=== PATIENT | female | born 1990 | race Caucasian/White ===

== ENCOUNTER 2017-09-20 03:24 | Emergency (ER) | payer BC, SELFPAY | END 2017-09-20 05:51 | disposition home or self-care (01) | PROVIDERS: Emergency Provider Emergency Medicine; Family Provider Family Medicine; Visit Provider Emergency Medicine | DX: R07.2 Precordial pain (principal); Z88.2 Allergy status to sulfonamides; Z88.6 Allergy status to analgesic agent | CPT/HCPCS: 36415; 71020; 80053; 81001; 81025; 82550; 82553; 84484; 85025; 85378; 96374; 96375; 99284 ==

== ENCOUNTER 2019-02-12 08:05 | Observation (INO) | payer BC, SELFPAY ==
[2019-02-12] VITALS (11 sets, daily range): BP systolic 100–136; BP diastolic 57–94; PULSE 67–113; RESP 16–98; TEMP 36.6–37.2; O2SAT 94–100; BMI 32.6; BMI 34.0
--- NOTE | 2019-02-12 08:20 | HMH.EDGENADL ---
ED Disposition Clinical Impression: Rotaviral gastroenteritis Disposition: Home, Self-Care Condition on Discharge: Fair Instructions: DI for Diarrhea and Traveler's Diarrhea -- Adult, DI for Nausea -- Adult Prescriptions: Hydrocodone/Acetaminophen [[place] 7.5-325 Tablet] 1 tab PO TID PRN 3 Days #12 tab PRN Reason: Diarrhea Referrals: León Paulino [Primary Care Provider] - Time of Disposition: 11:44 - Critical Care Critical Care Time: No Attestation: On , the high probability of a clinically significant, sudden or life threatening deterioration of the following system(s) required my full and direct attention, intervention and personal management. The time I documented below is in addition to time spent performing reported procedures but includes the following listed in this critical care notation. Medical Decision Making - Medical Records Medical records reviewed: Yes: I reviewed the patient's medical records. - Job Inquiry Pt receiving controlled substance: No Job was queried for this patient: No Vital Signs: 02/12/19 08:15 02/12/19 08:59 02/12/19 10:24 Temperature 99 F Temperature Source Oral Pulse Rate [Left Radial] 113 H 76 75 Respiratory Rate 18 Blood Pressure [Right Arm] 135/94 H 127/77 116/73 Blood Pressure Mean [Right Arm] 107 93 87 Blood Pressure Source [Right Arm] Automatic Cuff Blood Pressure Position [Right Arm] Sitting 02 Sat by Pulse Oximetry 97 97 99 Oxygen Delivery Method Room Air 02/12/19 11:00 02/12/19 11:30 Temperature Temperature Source Pulse Rate [Left Radial] 95 H 89 Respiratory Rate Blood Pressure [Right Arm] 126/73 136/87 Blood Pressure Mean [Right Arm] 90 103 Blood Pressure Source [Right Arm] Blood Pressure Position [Right Arm] 02 Sat by Pulse Oximetry 98 96 Oxygen Delivery Method - Lab Data Lab results reviewed: Yes: I reviewed the patient's lab results. Lab Results 02/12/19 08:29: Urine Color Yellow, Urine Appearance Sl cloudy, Urine pH 7.0, Ur Specific [place] 1.015, Urine Protein 1+, Urine Glucose (UA) Negative, Urine Ketones Negative, Urine Blood 3+, Urine Nitrate Positive, Urine Bilirubin Negative, Urine Urobilinogen 1.0, Ur Leukocyte Esterase 1+ A, Urine RBC 3-5, Urine WBC Occasional, Ur Squamous Epith Cells 10-20, Urine Bacteria 1+, Urine Mucus Trace 02/12/19 08:29: Stl Aeromonas (PCR) Not detected, Stl C. cayetanensis PCR Not detected, Stool Rotavirus (PCR) Detected A, Stl Adenov F 40/41 PCR Not detected, Stool Astrovirus (PCR) Not detected, Stool Campylobacter PCR Not detected, Stl C.difficile Tox PCR Not detected, Stool Cryptosporidium PCR Not detected, Stl E.coli Shiga Tox PCR Not detected, Stool E coli O157 PCR Not detected, Stl Enterotoxigenic E PCR Not detected, Stool EPEC (PCR) Not detected, Stool EAEC (PCR) Not detected, Stl E. histolytica PCR Not detected, Stool Giardia Lamblia PCR Not detected, Stool Salmonella PCR Not detected, Stool Sapovirus (PCR) Not detected, Stl P. shigelloides PCR Not detected, Stl Shigella/EIEC PCR Not detected, St Y.enterocolitica PCR Not detected, Stool Vibrio (PCR) Not detected, Stl Vibrio cholerae PCR Not detected, Stl Norovirus GI/GII PCR Not detected 02/12/19 08:29: Urine HCG, Qual Negative 02/12/19 08:35: WBC 7.0, RBC 5.40, Hgb 15.6, Hct 44.4, MCV 82.3, MCH 28.9, MCHC 35.1, RDW 13.7, Plt Count 270, MPV 7.0 L, Neut % (Auto) 69.6, Lymph % (Auto) 19.9, [place] % (Auto) 7.7, Eos % (Auto) 2.6, Baso % (Auto) 0.2, Neut # (Auto) 4.9, Lymph # (Auto) 1.4, [place] # (Auto) 0.5, Eos # (Auto) 0.2, Baso # (Auto) 0.0 02/12/19 08:35: Sodium 138, Potassium 2.8 L*, Chloride 104, Carbon Dioxide 26, Anion Gap 10.8, BUN 7, Creatinine 0.65, Estimated Creat Clear 202, Estimated GFR 110, Est GFR ( Amer) 133, Glucose 95, Calcium 8.3 L, Total Bilirubin 0.4, AST 114 H, ALT 183 H, Alkaline Phosphatase 91, Total Protein 8.0, Albumin 3.6, Globulin 4.4 H, Albumin/Globulin Ratio 0.8 L Result diagrams: 02/12/19 08:35 02/12/19 0
--- NOTE | 2019-02-12 08:26 | ED_ITS ---
ED Disposition Clinical Impression: Rotaviral gastroenteritis Disposition: Home, Self-Care Condition on Discharge: Fair Instructions: DI for Diarrhea and Traveler's Diarrhea -- Adult, DI for Nausea -- Adult Prescriptions: Hydrocodone/Acetaminophen [[place] 7.5-325 Tablet] 1 tab PO TID PRN 3 Days #12 tab PRN Reason: Diarrhea Referrals: León Paulino [Primary Care Provider] - Time of Disposition: 11:44 - Critical Care Critical Care Time: No Attestation: On , the high probability of a clinically significant, sudden or life threatening deterioration of the following system(s) required my full and direct attention, intervention and personal management. The time I documented below is in addition to time spent performing reported procedures but includes the following listed in this critical care notation. Medical Decision Making - Medical Records Medical records reviewed: Yes: I reviewed the patient's medical records. - Job Inquiry Pt receiving controlled substance: No Job was queried for this patient: No Vital Signs: 02/12/19 08:15 02/12/19 08:59 02/12/19 10:24 Temperature 99 F Temperature Source Oral Pulse Rate [Left Radial] 113 H 76 75 Respiratory Rate 18 Blood Pressure [Right Arm] 135/94 H 127/77 116/73 Blood Pressure Mean [Right Arm] 107 93 87 Blood Pressure Source [Right Arm] Automatic Cuff Blood Pressure Position [Right Arm] Sitting 02 Sat by Pulse Oximetry 97 97 99 Oxygen Delivery Method Room Air 02/12/19 11:00 02/12/19 11:30 Temperature Temperature Source Pulse Rate [Left Radial] 95 H 89 Respiratory Rate Blood Pressure [Right Arm] 126/73 136/87 Blood Pressure Mean [Right Arm] 90 103 Blood Pressure Source [Right Arm] Blood Pressure Position [Right Arm] 02 Sat by Pulse Oximetry 98 96 Oxygen Delivery Method - Lab Data Lab results reviewed: Yes: I reviewed the patient's lab results. Lab Results 02/12/19 08:29: Urine Color Yellow, Urine Appearance Sl cloudy, Urine pH 7.0, Ur Specific [place] 1.015, Urine Protein 1+, Urine Glucose (UA) Negative, Urine Ketones Negative, Urine Blood 3+, Urine Nitrate Positive, Urine Bilirubin Negative, Urine Urobilinogen 1.0, Ur Leukocyte Esterase 1+ A, Urine RBC 3-5, Urine WBC Occasional, Ur Squamous Epith Cells 10-20, Urine Bacteria 1+, Urine Mucus Trace 02/12/19 08:29: Stl Aeromonas (PCR) Not detected, Stl C. cayetanensis PCR Not detected, Stool Rotavirus (PCR) Detected A, Stl Adenov F 40/41 PCR Not detected, Stool Astrovirus (PCR) Not detected, Stool Campylobacter PCR Not detected, Stl C.difficile Tox PCR Not detected, Stool Cryptosporidium PCR Not detected, Stl E.coli Shiga Tox PCR Not detected, Stool E coli O157 PCR Not detected, Stl Enterotoxigenic E PCR Not detected, Stool EPEC (PCR) Not detected, Stool EAEC (PCR) Not detected, Stl E. histolytica PCR Not detected, Stool Giardia Lamblia PCR Not detected, Stool Salmonella PCR Not detected, Stool Sapovirus (PCR) Not detected, Stl P. shigelloides PCR Not detected, Stl Shigella/EIEC PCR Not detected, St Y.enterocolitica PCR Not detected, Stool Vibrio (PCR) Not detected, Stl Vibrio cholerae PCR Not detected, Stl Norovirus GI/GII PCR Not detected 02/12/19 08:29: Urine HCG, Qual Negative 02/12/19 08:35: WBC 7.0, RBC 5.40, Hgb 15.6, Hct 44.4, MCV 82.3, MCH 28.9, MCHC 35.1, RDW 13.7, Plt Count 270, MPV 7.0
[2019-02-12 08:35] LABS: Adenovirus F 40/41, stool Not Detected (NotDetected); Astrovirus Not Detected (NotDetected); Campylobacter Not Detected (NotDetected); Clostridium Difficile A/B, PCR Not Detected (NotDetected); Cryptosporidium Not Detected (NotDetected); Cyclospora Cayetanesis Not Detected (NotDetected); Entamoeba histolytica Not Detected (NotDetected); Enteroaggregative E coli Not Detected (NotDetected); Enteropathogenic E coli Not Detected (NotDetected); Enterotoxigenic E coli Not Detected (NotDetected); Giardia lamblia Not Detected (NotDetected); Microscopic, Urine URINE MICROSCOPIC (MICROSCOPIC); Norovirus Not Detected (NotDetected); Plesimonas Shigalloides, PCR Not Detected (NotDetected); Salmonella, PCR Not Detected (NotDetected); Sapovirus Not Detected (NotDetected); Shiga-like toxin E coli Not Detected (NotDetected); Shigella Enterovasive E coli Not Detected (NotDetected); Vibrio Cholerae Not Detected (NotDetected); Vibrio, PCR Not Detected (NotDetected); Yersinia Entercolitica, PCR Not Detected (NotDetected)
[2019-02-12 08:41] LABS: Appearance,Urine SL CLOUDY (Clear); Blood, Urine 3+ (Negative); Color,Urine YELLOW (Yellow); Glucose,Urine (UA) Negative (Negative); Ketones,Urine Negative (Negative); Leukocyte Esterase,Urine 1+ (Negative); Nitrate,Urine POSITIVE (Negative); Protein,Urine 1+ (Negative); Specific Gravity, Urine 1.015 (1.005-1.030)
[2019-02-12 08:45] LABS: Urine Pregnancy, HCG Qual. Negative (Negative)
[2019-02-12 08:46] LABS: Bilirubin,Urine Negative (Negative)
[2019-02-12 08:47] LABS: Basophils % 0.2 % (0.1-2.0); Eosinophils # 0.2 K/mm3 (0.0-0.4); Eosinophils % 2.6 % (0.1-12.0); Hematocrit 44.4 % (37.0-47.0); Hemoglobin 15.6 g/dL (12.2-16.2); Lymphocytes # 1.4 K/mm3 (0.7-4.5); Lymphocytes % 19.9 % (10-50); Mean Corpuscular HGB Conc 35.1 g/dL (31.8-35.4); Mean Corpuscular Hemoglobin 28.9 pg (27.0-31.2); Mean Corpuscular Volume 82.3 fl (81-99); Monocytes # 0.5 K/mm3 (0.1-1.0); Monocytes % 7.7 % (1.7-9.3); Neutrophils # 4.9 K/mm3 (1.8-7.8); Neutrophils % 69.6 % (37.0-80.0); Platelet Count 270 K/mm3 (142-424); Red Cell Distribution Width 13.7 % (11.5-17.5)
[2019-02-12 08:47] LABS: Bacteria,Urine 1+ /lpf; Mucus,Urine Trace /lpf; WBC,Urine Occasional #/hpf (0-3)
[2019-02-12 09:02] LABS: Alanine Aminotransferase 183 U/L (12-78); Albumin Level 3.6 gm/dL (3.4-5.0); Albumin/Globulin Ratio 0.8 (1.1-1.8); Alkaline Phosphatase 91 U/L (46-116); Aspartate Amino Transferase 114 U/L (15-37); Bilirubin,Total 0.4 mg/dL (0.2-1.0); Blood Urea Nitrogen 7 mg/dL (7-18); Calcium 8.3 mg/dL (8.5-10.1); Creatinine Clearance Estimated 202 mL/min (50-200); Creatinine,Serum 0.65 mg/dL (0.55-1.02); Estimated Glomerular Filt Rate 110 ml/min (>60); GFR (African American) 133 ML/MIN (>60); Globulin 4.4 gm/dl (1.3-3.2); Glucose 95 mg/dL (74-106)
[2019-02-12 09:07] LABS: Sodium 138 mmol/L (136-145)
[2019-02-12 09:12] LABS: Anion Gap 10.8 mEq/L (5-15); Carbon Dioxide 26 mmol/L (21.0-32.0); Chloride 104 mmol/L (98-107)
[2019-02-12 09:13] LABS: Potassium 2.8 mmoL/L (3.5-5.1)
--- NOTE | 2019-02-12 09:15 | PC.NURSE ---
dr rebollar informed of k+ of 2.8
--- NOTE | 2019-02-12 09:59 | PC.NURSE ---
pt states no improvement
[2019-02-12 10:25] LABS: Rotavirus A Detected (NotDetected)
--- NOTE | 2019-02-12 12:07 | PC.NURSE ---
called care management and house for bed assignment and bed status
--- NOTE | 2019-02-12 12:54 | HMH.HP ---
*Admission Date: 02/12/19 <Anahi Harvey 02/12/19 13:01> *Chief complaint: diarrhea, abdominal cramping <Anahi Harvey 02/12/19 16:10> *History of present illness: Ms. Tavarez is a 28-year-old female who has had 2 children at home with a stomach virus. She states her 4-year-old started with symptoms on Saturday and was better by Saturday. Her 4-month-old baby just started with some green diarrhea. Over the past 3 days she has had one episode of vomiting and a lot of diarrhea. She is having approximately 20 episodes a day of watery diarrhea. She has had no foreign travel and denies any antibiotic use. She has been trying to drink Gatorade but has been unable to eat. She felt weak and dehydrated and presented to the emergency room where a diarrhea panel was positive for rotavirus. Her potassium was low as well. She will be admitted for rehydration and potassium supplementation. <Anahi Harvey 02/12/19 16:10> [facility] History I have reviewed the patient's past medical history: Yes <Anahi Harvey 02/12/19 13:01> Medical History: Reports:: Depression (post ) <Anahi Harvey 02/12/19 16:04> *Have you ever received a pneumonia vaccine?: No <Anahi Harvey 02/12/19 16:10> *Have you received a flu vaccine this season?: No <Anahi Harvey 02/12/19 13:01> Other Medical History: Reports: Hypothyroidism <Anahi Harvey 02/12/19 13:01> Laterality Cases: Bilateral: Tonsillectomy <Anahi Harvey 02/12/19 13:01> - *Social History Smoking Status: Never smoker <Anahi Harvey 02/12/19 13:01> Alcohol Intake: never <Anahi Harvey 02/12/19 13:01> *Occupational Status:: other <Anahi Harvey 02/12/19 13:01> *Travel in the last 8 weeks: None <Anahi Harvey 02/12/19 13:01> - Psychiatric History Expresses thoughts of harming self/others: None <Anahi Harvey 02/12/19 13:01> Suicide Plan Description: No Plan [facility]> [facility] Hx:: Hyperlipidemia, Hypertension [facility]:10> Review of Systems - Constitutional Reports chills, Reports fever(s), Reports weakness [facility] 02/12/19 13:01> - Eyes Denies blurry vision, Denies double vision <[facility]/12[facility] 13:01> - ENT Denies nasal congestion, Denies sore throat, Denies dizziness [facility] 02/12/19 13:01> - *Cardiovascular Denies chest pain, Denies shortness of breath, Denies rapid, pounding, or irregular heartbeat [facility] 02/12/19 13:01> - *Respiratory Denies cough, Denies shortness of breath [facility] 02/12/19 13:01> - *Gastrointestinal Reports abdominal pain, Reports loose stools, Reports nausea, Reports vomiting [facility] 02/12/19 13:01> - *Genitourinary Denies difficulty urinating, Denies painful urination <[facility] 02/12/19 13:01> - *Musculoskeletal Denies joint pain, Denies muscle weakness [facility] 02/12/19 13:01> - *Neurologic Reports dizziness, Reports weakness, Denies headache(s) <[facility]/12/[facility] 13:01> Meds Home Medications Medication Instructions Recorded Confirmed Type levothyroxine 100 mcg capsule 100 mcg PO DAILY cap 11/13/17 02/12/19 History Sertraline HCl [Zoloft 50mg tablet] 50 mg PO DAILY 02/12/19 02/12/19 History <Manny Wynne 02/12/19 17:45> Allergies Allergy/AdvReac Type Severity Reaction Status Date / Time codeine [CODEINE] Allergy Intermediate I-ITCHING Verified 02/12/19 08:42 Sulfa (Sulfonamide Allergy Intermediate I-ITCHING Verified 02/12/19 08:41 Antibiotics) [SULFA (SULFONAMIDE ANTIBIOTICS)] <Manny Wynne 02/12/19 17:45> Exam Vital signs and Labs for Last 24 Hours: Temp Pulse Resp BP Pulse Ox 98.0 F 67 17 109/63 L 100 02/12/19 16:00 02/12/19 16:00 02/12/19 16:00 02/12/19 16:00 02/12/19 16:00 Laboratory Results - last 24 hr 02/12/19 08:29: Urine Color Yellow, Urine Appearance Sl cloudy, Urine pH 7.0, Ur Specific [place] 1.015, Urin
--- NOTE | 2019-02-12 12:55 | PC.NURSE ---
report to august ndiaye
--- NOTE | 2019-02-12 12:57 | P.HP_ITS ---
*Admission Date: 02/12/19 <Anahi Harvey 02/12/19 13:01> *Chief complaint: diarrhea, abdominal cramping <Anahi Harvey 02/12/19 16:10> *History of present illness: Ms. Tavarez is a 28-year-old female who has had 2 children at home with a stomach virus. She states her 4-year-old started with symptoms on Saturday and was better by Saturday. Her 4-month-old baby just started with some green diarrhea. Over the past 3 days she has had one episode of vomiting and a lot of diarrhea. She is having approximately 20 episodes a day of watery diarrhea. She has had no foreign travel and denies any antibiotic use. She has been trying to drink Gatorade but has been unable to eat. She felt weak and dehydrated and presented to the emergency room where a diarrhea panel was positive for rotavirus. Her potassium was low as well. She will be admitted for rehydration and potassium supplementation. <Anahi Harvey 02/12/19 16:10> [facility] History I have reviewed the patient's past medical history: Yes <Anahi Harvey 02/12/19 13:01> Medical History: Reports:: Depression (post ) <Anahi Harvey 02/12/19 16:04> *Have you ever received a pneumonia vaccine?: No <Anahi Harvey 02/12/19 16:10> *Have you received a flu vaccine this season?: No <Anahi Harvey 02/12/19 13 :01> Other Medical History: Reports: Hypothyroidism <Anahi Harvey 02/12/19 13:01> Laterality Cases: Bilateral: Tonsillectomy <Anahi Harvey 02/12/19 13:01> - *Social History Smoking Status: Never smoker <Anahi Harvey 02/12/19 13:01> Alcohol Intake: never <Anahi Harvey 02/12/19 13:01> *Occupational Status:: other <Anahi Harvey 02/12/19 13:01> *Travel in the last 8 weeks: None <Anahi Harvey 02/12/19 13:01> - Psychiatric History Expresses thoughts of harming self/others: None <Anahi Harvey 02/12/19 13:01> Suicide Plan Description: No Plan [facility]> Family Hx:: Hyperlipidemia, Hypertension [facility] 16:10> Review of Systems - Constitutional Reports chills, Reports fever(s), Reports weakness [facility]/12[facility] 13:01> - Eyes Denies blurry vision, Denies double vision <[facility] 02/12[facility] 13:01> - ENT Denies nasal congestion, Denies sore throat, Denies dizziness <[facility] 02/12/[facility] 13:01> - *Cardiovascular Denies chest pain, Denies shortness of breath, Denies rapid, pounding, or irregular heartbeat <[facility] 02/12/[facility] 13:01> - *Respiratory Denies cough, Denies shortness of breath <[facility] 02/12/19 13:01> - *Gastrointestinal Reports abdominal pain, Reports loose stools, Reports nausea, Reports vomiting <[facility] 02/12/19 13:01> - *Genitourinary Denies difficulty urinating, Denies painful urination <[facility] 02/12/19 13:01> - *Musculoskeletal Denies joint pain, Denies muscle weakness [facility]/12[facility] 13:01> - *Neurologic Reports dizziness, Reports weakness, Denies headache(s) <[facility] 02/12/19 13:01> Meds Home Medications Medication Instructions Recorded Confirmed Type levothyroxine 100 mcg capsule 100 mcg PO DAILY cap 11/13/17 02/12/19 History Sertraline HCl [Zoloft 50mg tablet] 50 mg PO DAILY 02/12/19 02/12/19 History <Manny Wynne - 02/12/19 17:45> Allergies Allergy/AdvReac Type Severity Reaction Status Date / Time codeine [CODEINE] Allergy Intermediate I-ITCHING Verified 02/12/19 08:42 Sulfa (Sulfonamide Allergy Intermediat
--- NOTE | 2019-02-12 14:27 | P.CONPHA_ITS ---
[facility] Pharmacy VTE Monitoring - Patient Demographics Admission date: 02/12/19 Report Date: 02/12/19 Time: 14:27 Allergies/Adverse Reactions: Patient Allergies codeine [CODEINE] Allergy (Intermediate, Verified 02/12/19 08:42) I-ITCHING Sulfa (Sulfonamide Antibiotics) [SULFA (SULFONAMIDE ANTIBIOTICS)] Allergy (Intermediate, Verified 02/12/19 08:41) I-ITCHING Height: 1.73 m Weight: 101.633 kg Patient Problems: Current Active Problems (Updated 02/12/19 @ 13:01 by CHANDLER Jensen) Rotaviral gastroenteritis (Acute) Hypokalemia (Acute) Hypothyroidism (acquired) (Chronic) - VTE Risk Labs: VTE Related Lab Results Hgb 15.6 g/dL (12.2-16.2) 02/12/19 08:35 Hct 44.4 % (37.0-47.0) 02/12/19 08:35 Plt Count 270 K/mm3 (142-424) 02/12/19 08:35 BUN 7 mg/dL (7-18) 02/12/19 08:35 Creatinine 0.65 mg/dL (0.55-1.02) 02/12/19 08:35 Estimated Creat Clear 202 mL/min (50-200) 02/12/19 08:35 Was VTE Risk Assessment Performed: Yes VTE Score: 0 VTE Risk Level: Very Low Risk - Prophylaxis VTE Prophylaxis Ordered?: Yes Types of VTE Prophylaxis: TEDS Knee High Location of Applied Device: Bilateral Lower Extremeties - VTE Diagnosis Confirmed Treatment or plan recommended: Continue Current Treatment
--- NOTE | 2019-02-12 14:39 | PC.NURSE ---
RN contacted MD regarding patients home medication for Zoloft 50mg daily. MD stated that it can make her loose stools worse and educate the patient of this side effect and leave it up to her if she wants it or not. RN educated the patient and she stated that if she goes home tomorrow she will just take it when she gets home, if not we will worry about it then. will continue to monitor.
[2019-02-12 15:25] LABS: Anion Gap 15.2 mEq/L (5-15); Blood Urea Nitrogen 5 mg/dL (7-18); Carbon Dioxide 22 mmol/L (21.0-32.0); Chloride 107 mmol/L (98-107); Creatinine Clearance Estimated 311 mL/min (50-200); Creatinine,Serum 0.44 mg/dL (0.55-1.02); Estimated Glomerular Filt Rate 173 ml/min (>60); GFR (African American) 209 ML/MIN (>60); Glucose 87 mg/dL (74-106); Sodium 141 mmol/L (136-145)
[2019-02-12 15:26] LABS: Potassium 3.2 mmoL/L (3.5-5.1)
[2019-02-12 15:32] LABS: Calcium 7.5 mg/dL (8.5-10.1)
[2019-02-13 03:46] VITALS: BP 98/53; PULSE 66; RESP 18; TEMP 36.5; O2SAT 98; BMI 34.0
--- NOTE | 2019-02-13 03:47 | PC.NURSE ---
Pt is A&Ox4 and has ambulated to the several times this shift, independently, and pt tolerates well. Pt has denied any pain but has c/o of some nausea and ABD cramping, relieved with 1x dose of zofran. Pt has continued to have several episodes of watery diarrhea. Pt slept intermittently through the night d/t diarrhea & several episodes of fecal incontinence. Lungs CTA, no edema noted, ABD soft, tender to palpation, with hypo active BS. VSS, call light within reach, will continue to monitor.
[2019-02-13 05:59] LABS: Basophils % 0.3 % (0.1-2.0); Eosinophils # 0.1 K/mm3 (0.0-0.4); Eosinophils % 2.8 % (0.1-12.0); Hematocrit 33.9 % (37.0-47.0); Lymphocytes # 1.8 K/mm3 (0.7-4.5); Lymphocytes % 52.4 % (10-50); Mean Corpuscular HGB Conc 34.8 g/dL (31.8-35.4); Mean Corpuscular Hemoglobin 28.9 pg (27.0-31.2); Mean Corpuscular Volume 82.9 fl (81-99); Mean Platelet Volume 7.2 fl (7.4-10.4); Monocytes # 0.2 K/mm3 (0.1-1.0); Monocytes % 6.5 % (1.7-9.3); Neutrophils # 1.3 K/mm3 (1.8-7.8); Platelet Count 223 K/mm3 (142-424); Red Blood Count 4.09 M/mm3 (4.20-5.40); Red Cell Distribution Width 13.8 % (11.5-17.5); White Blood Count 3.4 K/mm3 (4.8-10.8)
[2019-02-13 06:03] LABS: Anion Gap 11.4 mEq/L (5-15); Blood Urea Nitrogen 3 mg/dL (7-18); Calcium 7.5 mg/dL (8.5-10.1); Carbon Dioxide 24 mmol/L (21.0-32.0); Chloride 110 mmol/L (98-107); Creatinine Clearance Estimated 351 mL/min (50-200); Creatinine,Serum 0.39 mg/dL (0.55-1.02); Estimated Glomerular Filt Rate 199 ml/min (>60); GFR (African American) 240 ML/MIN (>60); Glucose 97 mg/dL (74-106); Potassium 3.4 mmoL/L (3.5-5.1); Sodium 142 mmol/L (136-145)
[2019-02-13 06:05] LABS: MANUAL DIFFERENTIAL MANUAL DIFFERENTIAL (MANUAL DIFF)
[2019-02-13 08:00] VITALS: BP 121/55; PULSE 69; RESP 15; TEMP 36.8; O2SAT 100; O2SAT 99
--- NOTE | 2019-02-13 08:33 | HMH.ACPN2 ---
<Anahi Harvey - Last Filed: 02/13/19 08:33> Internal Medicine - PN: Subj *Date: 02/13/19 *Time: 08:33 Interval history: Patient is feeling better this morning. She still has diarrhea but it is slowing. She had some abdominal cramps through the night but they have improved this morning. She is tolerating a clear liquid diet but does not want to advance at this time. Exam Vital signs and Labs for Last 24 Hours: Temp Pulse Resp BP Pulse Ox 98.2 F 69 15 121/55 L 99 02/13/19 08:00 02/13/19 08:00 02/13/19 08:00 02/13/19 08:00 02/13/19 08:00 Laboratory Results - last 24 hr 02/12/19 08:29: Urine Color Yellow, Urine Appearance Sl cloudy, Urine pH 7.0, Ur Specific [place] 1.015, Urine Protein 1+, Urine Glucose (UA) Negative, Urine Ketones Negative, Urine Blood 3+, Urine Nitrate Positive, Urine Bilirubin Negative, Urine Urobilinogen 1.0, Ur Leukocyte Esterase 1+ A, Urine RBC 3-5, Urine WBC Occasional, Ur Squamous Epith Cells 10-20, Urine Bacteria 1+, Urine Mucus Trace 02/12/19 08:29: Stl Aeromonas (PCR) Not detected, Stl C. cayetanensis PCR Not detected, Stool Rotavirus (PCR) Detected A, Stl Adenov F 40/41 PCR Not detected, Stool Astrovirus (PCR) Not detected, Stool Campylobacter PCR Not detected, Stl C.difficile Tox PCR Not detected, Stool Cryptosporidium PCR Not detected, Stl E.coli Shiga Tox PCR Not detected, Stool E coli O157 PCR Not detected, Stl Enterotoxigenic E PCR Not detected, Stool EPEC (PCR) Not detected, Stool EAEC (PCR) Not detected, Stl E. histolytica PCR Not detected, Stool Giardia Lamblia PCR Not detected, Stool Salmonella PCR Not detected, Stool Sapovirus (PCR) Not detected, Stl P. shigelloides PCR Not detected, Stl Shigella/EIEC PCR Not detected, St Y.enterocolitica PCR Not detected, Stool Vibrio (PCR) Not detected, Stl Vibrio cholerae PCR Not detected, Stl Norovirus GI/GII PCR Not detected 02/12/19 08:29: Urine HCG, Qual Negative 05/16/19 08:35: WBC 7.0, RBC 5.40, Hgb 15.6, Hct 44.4, MCV 82.3, MCH 28.9, MCHC 35.1, RDW 13.7, Plt Count 270, MPV 7.0 L, Neut % (Auto) 69.6, Lymph % (Auto) 19.9, [place] % (Auto) 7.7, Eos % (Auto) 2.6, Baso % (Auto) 0.2, Neut # (Auto) 4.9, Lymph # (Auto) 1.4, [place] # (Auto) 0.5, Eos # (Auto) 0.2, Baso # (Auto) 0.0 02/12/19 08:35: Sodium 138, Potassium 2.8 L*, Chloride 104, Carbon Dioxide 26, Anion Gap 10.8, BUN 7, Creatinine 0.65, Estimated Creat Clear 202, Estimated GFR 110, Est GFR ( Amer) 133, Glucose 95, Calcium 8.3 L, Total Bilirubin 0.4, AST 114 H, ALT 183 H, Alkaline Phosphatase 91, Total Protein 8.0, Albumin 3.6, Globulin 4.4 H, Albumin/Globulin Ratio 0.8 L 02/12/19 15:05: Sodium 141, Potassium 3.2 L, Chloride 107, Carbon Dioxide 22, Anion Gap 15.2 H, BUN 5 L D, Creatinine 0.44 L D, Estimated Creat Clear 311 H, Estimated GFR 173, Est GFR ( Amer) 209 D, Glucose 87, Calcium 7.5 L 02/13/19 05:44: WBC 3.4 L D, RBC 4.09 L, Hct 33.9 L, MCV 82.9, MCH 28.9, MCHC 34.8, RDW 13.8, Plt Count 223, MPV 7.2 L, Neut % (Auto) 38.0, Lymph % (Auto) 52.4 H, [place] % (Auto) 6.5, Eos % (Auto) 2.8, Baso % (Auto) 0.3, Neut # (Auto) 1.3 L, Lymph # (Auto) 1.8, [place] # (Auto) 0.2, Eos # (Auto) 0.1, Baso # (Auto) 0.0 02/13/19 05:44: Sodium 142, Potassium 3.4 L, Chloride 110 H, Carbon Dioxide 24, Anion Gap 11.4, BUN 3 L D, Creatinine 0.39 L, Estimated Creat Clear 351 H, Estimated GFR 199, Est GFR ( Amer) 240, Glucose 97, Calcium 7.5 L I & O for Last 24 hours: Intake & Output 02/10/19 02/11/19 02/12/19 02/13/19 11:59 11:59 11:59 11:59 Intake Total 680 / 680 Balance 680 / 680 Weight 215 lb 224 lb 1 oz Microbiology Reports for the Last 24 Hours: Microbiology 02/12/19 08:29 Urine,Clean Catch Urine Culture - Preliminary - Constitutional no acute distress - *Routine Respiratory Exam Present: CTA bilaterally - *Routine Cardiovascular Exam Present: RRR - *Routine Abdominal Exam Present: soft, normoactive bowel sounds, tenderness (diffuse) - *Routine Extremities Exam A
[2019-02-13 10:43] LABS: Eosinophils % 3 % (0-3); Lymphocytes % 52 % (10-50); Monocytes % 4 % (2-9); Neutrophils % 39 % (42-76); Platelet Estimate Normal; RBC Morphology Normal; Total Cells Counted 100
[2019-02-13 11:33] LABS: Hemoglobin 11.8 g/dL (12.2-16.2)
--- NOTE | 2019-02-13 13:12 | HMH.DCSUM ---
General - General Admission date:: 02/12/19 Discharge date: 02/13/19 HPI HPI: Ms. Tavarez is a 28-year-old female who has had 2 children at home with a stomach virus. She states her 4-year-old started with symptoms on Saturday and was better by Saturday. Her 4-month-old baby just started with some green diarrhea. Over the past 3 days she has had one episode of vomiting and a lot of diarrhea. She is having approximately 20 episodes a day of watery diarrhea. She has had no foreign travel and denies any antibiotic use. She has been trying to drink Gatorade but has been unable to eat. She felt weak and dehydrated and presented to the emergency room where a diarrhea panel was positive for rotavirus. Her potassium was low as well. She will be admitted for rehydration and potassium supplementation. Hospital Course Hospital Course: The patient was admitted and started on IV fluids, antiemetics, and potassium supplementation. Her home medications were resumed. Her diarrhea did begin slowing and her abdominal cramps improved. She was able to tolerate a clear liquid diet. Her potassium did improve. She was anxious to go home and was stable to be discharged. Objective Vital signs: Temp Pulse Resp BP Pulse Ox 98.2 F 69 15 121/55 L 100 02/13/19 08:00 02/13/19 08:00 02/13/19 08:00 02/13/19 08:00 02/13/19 08:00 Narrative: - Constitutional no acute distress - *Routine HEENT Exam Head: Present: normocephalic Eye: Present: EOMI, PERRL ENT: Present: mucous membranes dry - *Routine Neck Exam Present: supple. Absent: lymphadenopathy - *Routine Respiratory Exam Present: CTA bilaterally - *Routine Cardiovascular Exam Present: RRR - *Routine Abdominal Exam Present: soft, normoactive bowel sounds, tenderness (diffuse) - *Routine Extremities Exam Absent: cyanosis, clubbing, edema - *Routine Skin Exam Present: warm. Absent: rash - *Routine Neurological Exam Present: alert, oriented X3 Results Labs on day of discharge: Labs from last 24 hours 02/13/19 02/13/19 02/12/19 05:44 05:44 15:05 WBC 3.4 L D RBC 4.09 L Hgb 11.8 L D Hct 33.9 L MCV 82.9 MCH 28.9 MCHC 34.8 RDW 13.8 Plt Count 223 MPV 7.2 L Neut % (Auto) 38.0 Lymph % (Auto) 52.4 H [place] % (Auto) 6.5 Eos % (Auto) 2.8 Baso % (Auto) 0.3 Neut # (Auto) 1.3 L Lymph # (Auto) 1.8 [place] # (Auto) 0.2 Eos # (Auto) 0.1 Baso # (Auto) 0.0 Total Counted 100 Neutrophils % (Manual) 39 L Band Neutrophils % 2.0 Lymphocytes % (Manual) 52 H Monocytes % (Manual) 4 Eosinophils % (Manual) 3 Platelet Estimate Normal RBC Morphology Normal Sodium 142 141 Potassium 3.4 L 3.2 L Chloride 110 H 107 Carbon Dioxide 24 22 Anion Gap 11.4 15.2 H BUN 3 L D 5 L D Creatinine 0.39 L 0.44 L D Estimated Creat Clear 351 H 311 H Estimated GFR 199 173 Est GFR ( Amer) 240 209 D Glucose 97 87 Calcium 7.5 L 7.5 L Preliminary micro results at discharge 02/12/19 08:29 Urine Culture - Preliminary Urine,Clean Catch DS: Diagnosis - Discharge Diagnosis (1) Rotaviral gastroenteritis Status: Acute (2) Hypokalemia Status: Acute (3) Hypothyroidism (acquired) Status: Chronic (4) Post depression Status: Chronic Discharge Plan - Patient Discharge Instructions ACTIVITY: Continue current activity DIET: advance to your usual diet Patient Instructions: DI for Rotavirus -- Adult, DI for Viral Gastroenteritis -- Adult, DI for Hypokalemia - Follow up Plan Follow up with: León Paulino [Primary Care Provider] - 1 week Disposition: Home, Self-Assisted Medications: Home Medications Medication Instructions Recorded Confirmed Type levothyroxine 100 mcg capsule 100 mcg PO DAILY cap 11/13/17 02/12/19 History Sertraline HCl [Zoloft 50mg tablet] 50 mg PO DAILY
--- NOTE | 2019-02-13 13:15 | P.DS_ITS ---
General - General Admission date:: 02/12/19 Discharge date: 02/13/19 HPI HPI: Ms. Tavarez is a 28-year-old female who has had 2 children at home with a stomach virus. She states her 4-year-old started with symptoms on Saturday and was better by Saturday. Her 4-month-old baby just started with some green diarrhea. Over the past 3 days she has had one episode of vomiting and a lot of diarrhea. She is having approximately 20 episodes a day of watery diarrhea. She has had no foreign travel and denies any antibiotic use. She has been trying to drink Gatorade but has been unable to eat. She felt weak and dehydrated and presented to the emergency room where a diarrhea panel was positive for rotavirus. Her potassium was low as well. She will be admitted for rehydration and potassium supplementation. Hospital Course Hospital Course: The patient was admitted and started on IV fluids, antiemetics, and potassium supplementation. Her home medications were resumed. Her diarrhea did begin slowing and her abdominal cramps improved. She was able to tolerate a clear liquid diet. Her potassium did improve. She was anxious to go home and was stable to be discharged. Objective Vital signs: Temp Pulse Resp BP Pulse Ox 98.2 F 69 15 121/55 L 100 02/13/19 08:00 02/13/19 08:00 02/13/19 08:00 02/13/19 08:00 02/13/19 08:00 Narrative: - Constitutional no acute distress - *Routine HEENT Exam Head: Present: normocephalic Eye: Present: EOMI, PERRL ENT: Present: mucous membranes dry - *Routine Neck Exam Present: supple. Absent: lymphadenopathy - *Routine Respiratory Exam Present: CTA bilaterally - *Routine Cardiovascular Exam Present: RRR - *Routine Abdominal Exam Present: soft, normoactive bowel sounds, tenderness (diffuse) - *Routine Extremities Exam Absent: cyanosis, clubbing, edema - *Routine Skin Exam Present: warm. Absent: rash - *Routine Neurological Exam Present: alert, oriented X3 Results Labs on day of discharge: Labs from last 24 hours 02/13/19 02/13/19 02/12/19 05:44 05:44 15:05 WBC 3.4 L D RBC 4.09 L Hgb 11.8 L D Hct 33.9 L MCV 82.9 MCH 28.9 MCHC 34.8 RDW 13.8 Plt Count 223 MPV 7.2 L Neut % (Auto) 38.0 Lymph % (Auto) 52.4 H [place] % (Auto) 6.5 Eos % (Auto) 2.8 Baso % (Auto) 0.3 Neut # (Auto) 1.3 L Lymph # (Auto) 1.8 [place] # (Auto) 0.2 Eos # (Auto) 0.1 Baso # (Auto) 0.0 Total Counted 100 Neutrophils % (Manual) 39 L Band Neutrophils % 2.0 Lymphocytes % (Manual) 52 H Monocytes % (Manual) 4 Eosinophils % (Manual) 3 Platelet Estimate Normal RBC Morphology Normal Sodium 142 141 Potassium 3.4 L 3.2 L Chloride 110 H 107 Carbon Dioxide 24 22 Anion Gap 11.4 15.2 H BUN 3 L D 5 L D Creatinine 0.39 L 0.44 L D Estimated Creat Clear 351 H 311 H Estimated GFR 199 173 Est GFR ( Amer) 240 209 D Glucose 97 87 Calcium 7.5 L 7.5 L
--- NOTE | 2019-02-13 13:57 | HMH.PHAINT ---
DISCHARGE COUNSELING COMPLETED ON PATIENT. NO NEW MEDICATIONS AT THIS TIME AND PATIENT IS TO CONTINUE HER CURRENT HOME MEDICATIONS. PATIENT HAD NO QUESTIONS AT THIS TIME. -LEANNE MICHELLE, BRITTANIED
== END 2019-02-13 02:10 | disposition home or self-care (01) ==
LOC: ER 11:54 → 2ND 13:34
PROVIDERS: Admitting Provider Family Medicine; Emergency Provider Emergency Medicine; PCP Family Medicine; Visit Provider Family Medicine
DX: A08.0 Rotaviral enteritis (principal); E87.6 Hypokalemia; E03.9 Hypothyroidism, unspecified; F53.0 Postpartum depression; Z88.6 Allergy status to analgesic agent; Z88.2 Allergy status to sulfonamides
CPT/HCPCS: 36415; 80048; 80053; 81001; 81025; 85007; 85025; 87086; 87507; 96365; 96367; 96375; 96376; 99285; G0378; J2405

== ENCOUNTER → 2019-04-14 08:11 | Outpatient (POV) | payer BC, SELFPAY | PROVIDERS: Visit Provider Dermatology | DX: Z00.00 Encounter for general adult medical examination without abnormal findings (principal) ==

== ENCOUNTER 2020-02-19 14:40 | Emergency (ER) | payer BC, SELFPAY ==
--- NOTE | 2020-02-19 14:52 | HMH.EDUTC ---
[facility] [place] Clinical Impression: Dog bite of left hand Qualifiers: Encounter type: initial encounter Qualified Code(s): S61.452A - Open bite of left hand, initial encounter Disposition: Home, Self-Care Condition on Discharge: Good Instructions: DI for Dog Bite Additional Instructions: Keep the wounds clean and dry. Follow up with your regular doctor. Take the antibiotics as directed and apply the topical antibiotics as directed. Make sure you stay in contact with the health department regarding the health of the dog. Watch the puncture wounds for signs of worsening infection, such as worsening redness, drainage, swelling, etc. GO TO THE ER FOR ANY WORSENING SYMPTOMS FOLLOW UP WITH ORTHOPEDICS IF YOU CONTINUE TO HAVE PAIN OR SYMPTOMS. I PUT IN A REFERRAL, BUT YOU'D HAVE TO CALL DR. PAGE'S OFFICE FOR AN APPOINTMENT. Prescriptions: Amoxicillin/Potassium Clav [Augmentin 875-125 Tablet] 1 tab PO Q12H 10 Days #20 tab Transmission Status: Received by [id number] Mupirocin [Bactroban 2% Ointment 22gm tube] 1 applicatio TP TID 7 Days #1 tube Transmission Status: Received by [id number] Referrals: León Paulino [Primary Care Provider] - Estefany Page MD [Physician] - Time of Disposition: 15:34 Medical Decision Making - Medical Records Medical records reviewed: No: I reviewed the patient's medical records. - Job Inquiry Pt receiving controlled substance: No Vital Signs: 02/19/20 14:54 02/19/20 15:57 Temperature 98.7 F 98.7 F Temperature Source Oral Pulse Rate 81 Pulse Rate [Right Brachial] 81 Respiratory Rate 18 18 Blood Pressure 143/89 H Blood Pressure [Right Arm] 143/89 H Blood Pressure Mean [Right Arm] 107 Blood Pressure Source [Right Arm] Automatic Cuff Blood Pressure Position [Right Arm] Sitting 02 Sat by Pulse Oximetry 98 Oxygen Delivery Method Room Air Orders (Tests/Meds): ED MEDICATIONS Discontinued Medications Generic Name Dose Route Start Last Admin Trade Name Freq PRN Reason Stop Dose Admin Ceftriaxone Sodium 1 gm 02/19/20 15:28 02/19/20 15:56 Rocephin 1gm Vial IM 02/19/20 15:29 1 gm ONCE ONE Administration Protocol Lidocaine HCl 0 ml 02/19/20 15:28 02/19/20 15:56 Lidocaine 1% 10ml Mdv IM 02/19/20 15:29 2.1 ml ONCE ONE Administration ORDERS Category Date Time Status Wound Culture and Gram Stain Stat Micro 02/19/20 15:17 Results - Radiology Data #1 Image(s): Hand Image Reviewed: Yes I reviewed the patient's radiology image, Yes I have reviewed radiologist's interpretation Preliminary Findings: No Fracture Seen PROCEDURE: XR HAND LT MIN 3V CLINICAL INDICATION: INJURY Posttraumatic pain COMPARISON: No exams were available for comparison FINDINGS: No fracture or dislocation. No lytic or blastic change. There is normal mineralization. The joint spaces are well-preserved. No significant degenerative/arthritic changes. No erosive changes evident. Other findings:No radiopaque body IMPRESSION: No acute findings. Dictated by: Hector Castelan MD 02/19/2020 15:35 Electronically signed by Hector Castelan MD in [place] 02/19/2020 15:35 [facility] [place] - General Stated complaint: ao dog bite Time Seen by Provider: 02/19/20 14:52 - History of Present Illness Provider Complaint: She states that yesterday she was bathing her dog when it bit her. It has never bit anyone before then. She states that she contacted her vet and the dog is in quarentine now because his rabies vaccine is not up to date. She states that she was bit on her left hand once. She c/o left hand pain that is worse with moving her index finger. Her tetanus immunization is up to date. - Related Data Home Medications Medication Instructions Recorded Confirmed levothyroxine 100 mcg capsule 100 mcg PO DAILY cap 11/13/17 02/19/20 Sertraline HCl [Zoloft 50mg tablet] 50 mg PO DAILY 02/12/19 02/19/20
[2020-02-19 14:54] VITALS: BP 143/89; PULSE 81; RESP 18; TEMP 37.1; O2SAT 98; BMI 38.5
--- NOTE | 2020-02-19 15:01 | XR_ITS ---
PROCEDURE: XR HAND LT MIN 3V CLINICAL INDICATION: INJURY Posttraumatic pain COMPARISON: No exams were available for comparison FINDINGS: No fracture or dislocation. No lytic or blastic change. There is normal mineralization. The joint spaces are well-preserved. No significant degenerative/arthritic changes. No erosive changes evident. Other findings:No radiopaque body IMPRESSION: No acute findings. Dictated by: Hector Castelan MD 02/19/2020 15:35 Electronically signed by Hector Castelan MD in [place] 02/19/2020 15:35
--- NOTE | 2020-02-19 15:56 | PC.NURSE ---
WOUND CLEANED WITH NS, NEOSPORIN, DRESSING AND FINGER SPLINT APPLIED. PATIENT GIVEN ARM SLING WITH INSTRUCTIONS ON USE.
[2020-02-19 15:57] VITALS: BP 143/89; PULSE 81; RESP 18; TEMP 37.1; O2SAT 98
== END 2020-02-19 16:04 | disposition home or self-care (01) ==
PROVIDERS: Emergency Provider Nurse Practitioner Family; PCP Family Medicine
DX: S61.452A Open bite of left hand, initial encounter (principal); W54.0XXA Bitten by dog, initial encounter; Y92.019 Unspecified place in single-family (private) house as the place of occurrence of the external cause; Z88.0 Allergy status to penicillin; E03.9 Hypothyroidism, unspecified; F53.0 Postpartum depression
CPT/HCPCS: 73130; 87070; 87077; 87186; 87205; 96372; 99202

== ENCOUNTER 2020-03-22 17:56 | Emergency (ER) | payer BC, SELFPAY ==
[2020-03-22 17:57] VITALS: BP 122/70; PULSE 72; RESP 16; TEMP 36.7; O2SAT 98; BMI 38.0
--- NOTE | 2020-03-22 18:11 | HMH.EDUTC ---
[facility] – [place] Disposition Clinical Impression: Shingles Qualifiers: Herpes zoster complications: without complications Qualified Code(s): B02.9 - Zoster without complications Disposition: Home, Self-Care Condition on Discharge: Good Instructions: DI for Shingles, Shingles, Acyclovir Additional Instructions: Self-care: Keep your rash clean and dry. Cover your rash with a bandage or clothing. Do not use bandages that stick to your skin. The sticky part may irritate your skin and make your rash last longer. Prevent the spread of shingles: The virus can be passed to a person who has never had chickenpox. This person may get chickenpox, but not shingles. You may pass the virus to others as long as you have a rash. The virus is spread by direct contact with the fluid from the blisters. Usually, you cannot spread the virus once the blisters dry up. Take your medicines exactly as prescribed. Call your doctor or nurse call line if you think you are having a problem with your medicine. Antiviral medicine helps you get better faster and may help prevent later problems. Try not to scratch or pick at the blisters. They will crust over and fall off on their own if you leave them alone. Put cool, wet cloths on the area to relieve pain and itching. You can also use calamine lotion. Try not to use so much lotion that it cakes and is hard to get off. Put cornstarch or baking soda on the sores to help dry them out so they heal faster. Do not use thick ointment, such as petroleum jelly, on the sores. This will keep them from drying and healing. To help remove loose crusts, soak them in tap water. This can help decrease oozing, and dry and soothe the skin. Take an avef-poh-lwktzym pain medicine, such as acetaminophen (Tylenol), ibuprofen (Advil, Motrin), or naproxen (Aleve). Read and follow all instructions on the label. Avoid close contact with people until the blisters have healed. It is very important for you to avoid contact with anyone who has never had chickenpox or the chickenpox vaccine. women, young babies, and anyone else who has a hard time fighting infection (such as someone with HIV, diabetes, or cancer) is especially at risk. *Take medication as prescribed Follow up with Family Doctor if no improvement or immediately if any worsening of symptoms Return if needed Straight to ER if any life threatening symptoms Prescriptions: Acyclovir [Acyclovir 800mg tab] 800 mg PO 5XDAY 7 Days #35 tab Transmission Status: Pending to [id number] Referrals: Provider,Referral, MD [Primary Care Provider] - As needed Time of Disposition: 18:22 Medical Decision Making - Job Inquiry Pt receiving controlled substance: No Job was queried for this patient: No Vital Signs: 03/22/20 17:57 Temperature 98.0 F Temperature Source Oral Pulse Rate [Radial] 72 Respiratory Rate 16 Blood Pressure [Right Arm] 122/70 Blood Pressure Mean [Right Arm] 87 Blood Pressure Source [Right Arm] Automatic Cuff Blood Pressure Position [Right Arm] Standing 02 Sat by Pulse Oximetry 98 Oxygen Delivery Method Room Air [facility] [place] HPI - General Stated complaint: rash on left side Time Seen by Provider: 03/22/20 18:11 Mode of Arrival: Ambulatory Source of Information: Patient Limitations: No Limitations Description of Symptoms (Recalled from Triage Doc. by RN): rash on left side of stomach that came up this morning HEENT Symptoms (Recalled from RN notes): No Resp Symptoms (Recalled from RN notes): No Skin Symptoms (Recalled from RN notes): Yes MS Symptoms (Recalled from RN notes): No Functional Status (Recalled from RN notes): wnl - History of Present Illness Provider Complaint: Patient states that she woke up this morning with a rash on the left side of her abdomen State that rash was itchy, then would burn States that rash is sore and love this evening and seems to be spreading in a line around her side so she came in to get it checked - Related Data Home Medic
[2020-03-22 18:36] VITALS: BP 122/70; PULSE 72; RESP 16; TEMP 36.7; O2SAT 98
== END 2020-03-22 18:38 | disposition home or self-care (01) ==
PROVIDERS: Emergency Provider Nurse Practitioner
DX: B02.9 Zoster without complications (principal); E03.9 Hypothyroidism, unspecified; Z88.2 Allergy status to sulfonamides; Z88.5 Allergy status to narcotic agent
CPT/HCPCS: 99201

== ENCOUNTER → 2020-03-25 15:02 | Day surgery (SDC) | payer BC, SELFPAY ==
[2020-03-25 16:02] VITALS: BP 146/76; PULSE 82; PULSE 83; RESP 18; RESP 20; TEMP 36.8; TEMP 37; O2SAT 97; BMI 36.9
[2020-03-25 16:37] VITALS: BP 132/85; PULSE 85; RESP 18
--- NOTE | 2020-03-25 16:40 | HMH.PMPROC ---
- Procedure Date: 03/25/20 Time: 16:40 Anesthesiologist:: Redd Santana MD Complications:: None Pre-procedure Diagnosis:: Acute herpes zoster with new onset shingles rash Post-procedure Diagnosis:: Same Indications for Procedure:: This patient is a pleasant 29-year-old white female who we are seeing for new onset shingles rash with acute herpes zoster on the left flank on the back to the abdomen. This is in the L1-L2 dermatomal level. Her rash came up Saturday. She is now on acyclovir. We will put her on gabapentin 3 mg 3 times a day. We will do a peripheral nerve block today. Procedure Details:: Peripheral nerve block to the L1-L2 dermatomal level on the left flank Informed consent was obtained risk and benefits of the procedure were explained to the patient. The patient was taken to the procedure room. The left leg was prepped using ChloraPrep. A 25-gauge needle was inserted and advanced underneath the rash we injected 20 mL bupivacaine 0.25% and Depo-Medrol 40 mg subcutaneous to the rash. Patient tolerated the procedure well with no complications. Plan and Disposition:: We will follow-up with her in 1 week. We will plan on a lumbar epidural sympathetic block because of the extensiveness of the rash. She is to continue with her acyclovir and also continue with gabapentin 300 mg up to 3 times a day. We will plan on a lumbar epidural sympathetic block at L1-L2 at her next visit.
[2020-03-25 16:41] VITALS: BP 125/89; PULSE 85; RESP 18
== END ==
PROVIDERS: PCP Family Medicine; Visit Provider Anesthesiology
DX: B02.8 Zoster with other complications (principal); E03.9 Hypothyroidism, unspecified; F32.9 Major depressive disorder, single episode, unspecified; Z87.39 Personal history of other diseases of the musculoskeletal system and connective tissue; Z90.89 Acquired absence of other organs; Z90.49 Acquired absence of other specified parts of digestive tract; Z88.2 Allergy status to sulfonamides; Z88.5 Allergy status to narcotic agent; Z79.899 Other long term (current) drug therapy
CPT/HCPCS: 64450; J1040

== ENCOUNTER 2020-04-01 09:02 | Day surgery (SDC) | payer BC, SELFPAY ==
[2020-04-01 09:26] VITALS: BP 150/87; PULSE 99; RESP 18; TEMP 36.9; O2SAT 95; BMI 38.0
[2020-04-01 10:01] VITALS: BP 132/85; PULSE 85; RESP 18; O2SAT 99
[2020-04-01 10:03] VITALS: BP 136/88; PULSE 85; RESP 18; O2SAT 99
[2020-04-01 10:15] VITALS: BP 137/79; PULSE 74; RESP 18; O2SAT 95
--- NOTE | 2020-04-01 10:46 | P.PCN_ITS ---
- Procedure Date: 04/01/20 Time: 10:47 Anesthesiologist:: Redd Santana MD Complications:: None Pre-procedure Diagnosis:: Acute herpes zoster with shingles rash on the left flank in the L1-L2 dermatomal level Post-procedure Diagnosis:: Same Indications for Procedure:: Patient is a pleasant 29-year-old white female who we are seeing for acute herpes zoster on the left flank in the L1-L2 dermatomal level. She did well with her peripheral nerve block however it was not long-lasting. We will do a lumbar epidural sympathetic block today to see if this well with her pain symptoms. Rash is resolving. Pain is getting somewhat better. Procedure Details:: Lumbar epidural sympathetic block Informed consent was obtained and the risk and benefits of the procedure was explained to the patient. The patient was taken to the procedure room. The patient was placed prone on the procedure table. The patient was prepped and draped in sterile fashion. C-arm fluoroscopy was used to view the lumbar spine. Skin and subcutaneous tissues were anesthetized using lidocaine. I placed an 18-gauge epidural needle and advanced into the L1-L2 interspace using fluoroscop ic guidance and [id number] to air. After confirmation of needle placement in the epidural space with dye I injected 5 mL of lidocaine 1.5% with Depo-Medrol 80 mg. Patient tolerated the procedure well with no complications. Plan and Disposition:: We will follow-up with her in 1 week. We will reevaluate her symptoms and plan on repeat lumbar epidural sympathetic block at that time.
== END 2020-04-01 10:15 | disposition home or self-care (01) ==
LOC: SC.PAINP 09:03
PROVIDERS: PCP Family Medicine; Visit Provider Anesthesiology
DX: B02.9 Zoster without complications (principal); F32.9 Major depressive disorder, single episode, unspecified; Z87.39 Personal history of other diseases of the musculoskeletal system and connective tissue; Z90.89 Acquired absence of other organs; Z98.51 Tubal ligation status; Z90.49 Acquired absence of other specified parts of digestive tract; Z79.899 Other long term (current) drug therapy; Z88.2 Allergy status to sulfonamides; Z88.5 Allergy status to narcotic agent; E03.9 Hypothyroidism, unspecified; Z82.49 Family history of ischemic heart disease and other diseases of the circulatory system; Z83.438 Family history of other disorder of lipoprotein metabolism and other lipidemia
CPT/HCPCS: 62323; J1040; Q9966

== ENCOUNTER 2020-07-16 16:11 | Emergency (ER) | payer BC, SELFPAY ==
[2020-07-16 16:26] VITALS: BP 142/86; PULSE 78; RESP 19; TEMP 36.9; O2SAT 100; BMI 38.0
--- NOTE | 2020-07-16 16:30 | HMH.EDUTC ---
[facility] – [place] Disposition Clinical Impression: Close exposure to COVID-19 virus, Encounter for laboratory testing for COVID-19 virus Disposition: Home, Self-Care Condition on Discharge: Good Instructions: Preventing the Spread of Coronavirus Discharge Instructions Additional Instructions: *Monitor Temp, Over the counter Motrin or Tylenol as directed/as needed Tylenol every 4 hours and Motrin every 6 hours (as long as your family doctor has told you that you can take it) for fever or pain. and straight to ER if unable to lower temp less than 101.0 after medication given *Warm salt water gargles may help to soothe the throat *Throat Lozenges *Warm fluids like tea with honey may help to soothe the throat *Sleep elevated *Humidifier/Vaporizer *Flonase 2 sprays in each nostril daily but be aware that it may take 2-3 days before you notice improvement *Bromfed may cause drowsiness. Know how it effects you (your child) before driving, caring for small child, or sending your child to school. Not other antihistamines/allergy medications while taking bromfed Your throat swab was sent for culture. Those results are typically sent to your primary care. Be sure to follow up in 2-3 days with your family doctor/primary care physician if no improvement so they can review those result and treat if necessary. If you don?t have a primary care doctor, I recommend you get one but in the mean time, you will have to return to a walk in clinic Follow up IMMEDIATELY for new or worsening symptoms or no Noticeable improvement over the next 48-72 hours. 911 for difficulty breathing or swallowing You was tested for today for COVID19 your test result should be on Saturday, you may call back on Saturday to see if your test results are back and the result You was given a handout with instructions for Self Quarantine and Self isolation for while you wait on test results and what to do if they are positive Prescriptions: Fluticasone Propionate [Flonase 50mcg nasal spray 16gm] 1 - 2 spr NS DAILY #1 bottle Transmission Status: Received by [id number] Referrals: León Paulino [Primary Care Provider] - As needed Time of Disposition: 16:34 Medical Decision Making - Job Inquiry Pt receiving controlled substance: No Job was queried for this patient: No Vital Signs: 07/16/20 16:26 Temperature 98.4 F Temperature Source Oral Pulse Rate [Radial] 78 Respiratory Rate 19 Blood Pressure [Right Arm] 142/86 H Blood Pressure Mean [Right Arm] 104 Blood Pressure Source [Right Arm] Automatic Cuff Blood Pressure Position [Right Arm] Sitting 02 Sat by Pulse Oximetry 100 Oxygen Delivery Method Room Air Orders (Tests/Meds): ORDERS Category Date Time Status Covid-19 Nasal PCR Sendout Stat Lab 07/16/20 14:20 Received [facility] [place] HPI - General Stated complaint: covid exposure test Time Seen by Provider: 07/16/20 16:30 Mode of Arrival: Ambulatory Source of Information: Patient Limitations: No Limitations Description of Symptoms (Recalled from Triage Doc. by RN): covid exposure, cough, fever, body aches, diarrhea since yesterday HEENT Symptoms (Recalled from RN notes): Yes Resp Symptoms (Recalled from RN notes): No Skin Symptoms (Recalled from RN notes): No MS Symptoms (Recalled from RN notes): No Functional Status (Recalled from RN notes): wnl - History of Present Illness Provider Complaint: Patient states that she attended several funerals this week and since multiple family members has tested positive for COVID States that she thought her may be just allergies until they called her and told that around 10 people that attended the funerals has since tested positive for COVID and got their result yesterday States that she has been having clear drainage from her nose body aches and diarrhea - Related Data Home Medications Medication Instructions Recorded Confirmed levothyroxine 100 mcg capsule 100 mcg PO DAILY cap 11/13/17 04/01/20 Sertraline HCl [Zoloft
[2020-07-16 16:49] VITALS: BP 142/86; PULSE 78; RESP 19; TEMP 36.9; O2SAT 100
[2020-07-18 10:24] LABS: Covid-19 Nasal PCR Sendout UK NOT DETECTED
== END 2020-07-16 16:51 | disposition home or self-care (01) ==
PROVIDERS: Emergency Provider Nurse Practitioner; PCP Family Medicine
DX: Z20.828 Contact with and (suspected) exposure to other viral communicable diseases (principal); E03.9 Hypothyroidism, unspecified; Z88.2 Allergy status to sulfonamides; Z88.5 Allergy status to narcotic agent
CPT/HCPCS: 99201; U0003

== ENCOUNTER 2020-11-01 18:20 | Emergency (ER) | payer BC, SELFPAY ==
[2020-11-01 18:20] VITALS: BP 145/69; PULSE 83; RESP 20; TEMP 36.9; O2SAT 99; BMI 38.0
--- NOTE | 2020-11-01 18:42 | HMH.EDUTC ---
[facility] [place] Disposition Clinical Impression: Otitis media Qualifiers: Otitis media type: unspecified Laterality: left Qualified Code(s): H66.92 - Otitis media, unspecified, left ear Disposition: Home, Self-Care Condition on Discharge: Good Instructions: Middle Ear Infection, Sinusitis, Amoxicillin Additional Instructions: *Monitor Temp, Over the counter Motrin or Tylenol as directed/as needed Tylenol every 4 hours and Motrin every 6 hours (as long as your family doctor has told you that you can take it) for fever or pain. and straight to ER if unable to lower temp less than 101.0 after medication given *Warm salt water gargles may help to soothe the throat *Throat Lozenges *Warm fluids like tea with honey may help to soothe the throat *Sleep elevated *Humidifier/Vaporizer *Flonase 2 sprays in each nostril daily but be aware that it may take 2-3 days before you notice improvement Your throat swab was sent for culture. Those results are typically sent to your primary care. Be sure to follow up in 2-3 days with your family doctor/primary care physician if no improvement so they can review those result and treat if necessary. If you don?t have a primary care doctor, I recommend you get one but in the mean time, you will have to return to a walk in clinic Follow up IMMEDIATELY for new or worsening symptoms or no Noticeable improvement over the next 48-72 hours. 911 for difficulty breathing or swallowing You were tested for today for COVID19 your test result should be back in the next 24-48 hours, you may call to the [facility] to see if your test results are back in the next 48 hours [phone] [facility] hours are 9am-9pm You was given a handout with instructions for Self Quarantine and Self isolation for while you wait on test results and what to do if they are positive If you are positive the Health Dept will be contacting you also Prescriptions: guaiFENesin [Mucinex 600mg tablet] 600 mg PO Q12HP PRN #20 tab.er.12h PRN Reason: Cough Transmission Status: [facility] Amoxicillin [Amoxicillin 875MG Tab] 875 mg PO Q12H #20 tab Transmission Status: [facility] Fluticasone Propionate [Flonase 50mcg nasal spray 16gm] 1 spr NS DAILY #1 bottle Transmission Status: Pending to [facility] Referrals: León Paulino [Primary Care Provider] - As needed Forms: Work/School Release Time of Disposition: 18:50 Medical Decision Making - Job Inquiry Pt receiving controlled substance: No Job was queried for this patient: No Vital Signs: 11/01/20 18:20 Temperature 98.4 F Temperature Source Oral Pulse Rate [Right Brachial] 83 Respiratory Rate 20 Blood Pressure [Right Arm] 145/69 H Blood Pressure Mean [Right Arm] 94 Blood Pressure Source [Right Arm] Automatic Cuff Blood Pressure Position [Right Arm] Sitting 02 Sat by Pulse Oximetry 99 Oxygen Delivery Method Room Air Orders (Tests/Meds): ORDERS Category Date Time Status Covid-19 Nasal PCR ([facility]) Routine Lab 11/01/20 18:23 Ordered [facility] UTC HPI - General Stated complaint: covid test Time Seen by Provider: 11/01/20 18:42 Mode of Arrival: Ambulatory Source of Information: Patient Limitations: No Limitations Description of Symptoms (Recalled from Triage Doc. by RN): COVID TEST D/T POSSIBLE EXPOSURE. C/O EARACHE, SORE THROAT, RUNNY NOSE, HEADACHE, CHILLS, AND FATIGUE THAT STARTED LAST NIGHT HEENT Symptoms (Recalled from RN notes): Yes Resp Symptoms (Recalled from RN notes): No Skin Symptoms (Recalled from RN notes): No MS Symptoms (Recalled from RN notes): No Functional Status (Recalled from RN notes): WNL - History of Present Illness Provider Complaint: Patient states that she has been having pain in her left ear, sinus pain and pressure, sore throat, cough and over all not feeling well State that her was tested for COVID earlier today and not sure of his test results yet States that this evening she was feeling worse so sh
[2020-11-01 18:46] LABS: UTC Influenza A Antigen Negative (Negative); UTC Strep Screen (Rapid) Negative (Negative)
[2020-11-01 18:47] LABS: UTC Influenza B Antigen Negative (Negative)
[2020-11-01 18:52] VITALS: BP 145/69; PULSE 83; RESP 20; TEMP 36.9; O2SAT 99
== END 2020-11-01 18:57 | disposition home or self-care (01) ==
PROVIDERS: Emergency Provider Nurse Practitioner; PCP Family Medicine
DX: Z20.822 Contact with and (suspected) exposure to COVID-19 (principal); H66.92 Otitis media, unspecified, left ear; E03.9 Hypothyroidism, unspecified; Z88.2 Allergy status to sulfonamides; Z88.5 Allergy status to narcotic agent; Z79.899 Other long term (current) drug therapy
CPT/HCPCS: 87804; 87880; 99202; G0463; U0003

== ENCOUNTER 2021-05-13 17:31 | Emergency (ER) | payer BC, SELFPAY ==
[2021-05-13 17:33] VITALS: BP 144/81; PULSE 79; RESP 16; TEMP 36.8; O2SAT 98; BMI 39.9
--- NOTE | 2021-05-13 18:03 | XR_ITS ---
PROCEDURE INFORMATION: Exam: XR Chest Exam date and time: 05/13/2021 6:03 PM Age: 30 years old Clinical indication: Other: Chest pressure, dizzy sp ankle surgery 05/09/2021; Additional info: Chest pressure dizzy sp ankle surgery 05/09/2021 TECHNIQUE: Imaging protocol: XR of the chest. Views: 1 view. Total images: 1 COMPARISON: CT ANGIO CHEST PE PROTOCOL 05/13/2021 7:27 PM FINDINGS: Lungs: Normal pulmonary expansion. Pulmonary vasculature grossly normal. No gross pulmonary infiltrates or edema pattern. Pleural spaces: No pleural effusion. No pneumothorax. Heart/Mediastinum: Heart size normal. No tracheal/mediastinal shift. Bones/joints: No acute osseous abnormalities are identified. IMPRESSION: No acute thoracic process.
--- NOTE | 2021-05-13 18:03 | ECG_ITS ---
APPROVED REPORT Exam: Resting ECG HR:72 bpm ECG Measurements Heart Rate 72 AXES SC 158 P 39 QRSd 92 QRS 46 QT 394 T 56 QTc 431 Conclusion Normal sinus rhythm Normal ECG Electronically signed by : Silvestre Arriaga MD 05/14/2021 08:59:16
--- NOTE | 2021-05-13 18:14 | CT_ITS ---
PROCEDURE INFORMATION: Exam: CTA Chest With Contrast Exam date and time: 05/13/2021 6:14 PM Age: 30 years old Clinical indication: Shortness of breath; Additional info: SOB post op TECHNIQUE: Imaging protocol: Computed tomographic angiography of the chest with contrast. 3D rendering (Not supervised by radiologist): MIP and/or 3D reconstructed images were created by the technologist. Total images: 604 Radiation optimization: All CT scans at this facility use at least one of these dose optimization techniques: automated exposure control; mA and/or kV adjustment per patient size (includes targeted exams where dose is matched to clinical indication); or iterative reconstruction. Contrast material: ISOVUE 370; Contrast volume: 75 ml; Contrast route: INTRAVENOUS (IV); COMPARISON: CR CXR CHEST(2 VIEWS-NOT PORTABLE) 09/20/2017 4:05 AM FINDINGS: Pulmonary arteries: The pulmonary arteries enhance appropriately with no evidence of pulmonary embolism. Aorta: The aorta enhances appropriately without evidence of dissection or aneurysm. No mediastinal hematoma. Thyroid: The visualized thyroid gland demonstrates no gross abnormality. Lungs: Mild bilateral bronchial wall thickening suggesting an element of bronchitis or bronchial edema, with no evidence of bronchiectasis or bronchial occlusions. No gross pulmonary infiltrates or edema pattern. Mild hypoventilatory changes. No pulmonary mass lesions are identified. Pleural spaces: No pleural effusion. No pneumothorax. Heart: Heart size normal. No pericardial effusion. Mediastinal space: The esophagus is largely contracted but demonstrates no gross abnormality. Lymph nodes: No supraclavicular or axillary adenopathy. No mediastinal or hilar adenopathy. Gallbladder and bile ducts: Prior cholecystectomy with no significant dilatation of the common bile duct. Spleen: Mild splenomegaly measuring 13.8 cm. Bones/joints: No acute osseous abnormalities are identified. Soft tissues: The soft tissues of the chest wall demonstrate no acute abnormality. IMPRESSION: 1. No evidence of pulmonary embolism or aortic dissection. 2. Mild bilateral bronchial wall thickening suggesting an element of bronchitis or bronchial edema. No gross pulmonary infiltrates.
[2021-05-13 18:40] LABS: Basophils # 0.1 K/mm3 (0-0.2); Basophils % 0.7 % (0.1-2.0); Chloride 101 mmol/L (98-107); Eosinophils # 0.2 K/mm3 (0.0-0.4); Eosinophils % 2.5 % (0.1-12.0); Hemoglobin 13.8 g/dL (12.2-16.2); Mean Corpuscular HGB Conc 33.7 g/dL (31.8-35.4); Mean Corpuscular Hemoglobin 28.5 pg (27.0-31.2); Mean Corpuscular Volume 84.6 fl (81-99); Mean Platelet Volume 7.1 fl (7.4-10.4); Monocytes # 0.5 K/mm3 (0.1-1.0); Monocytes % 5.8 % (1.7-9.3); Platelet Count 307 K/mm3 (142-424); Red Blood Count 4.85 M/mm3 (4.20-5.40); Red Cell Distribution Width 13.7 % (11.5-17.5); White Blood Count 7.7 K/mm3 (4.8-10.8)
[2021-05-13 18:41] LABS: Potassium 3.7 mmoL/L (3.5-5.1); Sodium 138 mmol/L (136-145)
[2021-05-13 18:43] LABS: HCG Qualitative, Serum Negative (Negative)
[2021-05-13 18:44] LABS: Anion Gap 9.7 mEq/L (5-15); Blood Urea Nitrogen 8 mg/dl (7-17); Carbon Dioxide 31 mmol/L (22.0-30.0); Creatinine Clearance Estimated 270 mL/min (50-200); Estimated Glomerular Filt Rate 119 ml/min (>60); GFR (African American) 144 ML/MIN (>60); Glucose 94 mg/dl (74-100)
[2021-05-13 19:04] LABS: Troponin I < 0.01 ng/ml (0.00-0.034)
[2021-05-13 19:15] LABS: Thyroid Stimulating Hormone 2.31 uIU/mL (0.465-4.68)
--- NOTE | 2021-05-13 20:04 | HMH.EDGENADL ---
ED Disposition Referrals: León Paulino [Primary Care Provider] - Attestation: On 05/13/21, the high probability of a clinically significant, sudden or life threatening deterioration of the following system(s) required my full and direct attention, intervention and personal management. The time I documented below is in addition to time spent performing reported procedures but includes the following listed in this critical care notation. Medical Decision Making Vital Signs: 05/13/21 17:33 Temperature 98.2 F Temperature Source Oral Pulse Rate [Radial] 79 Respiratory Rate 16 Blood Pressure [Right Arm] 144/81 H Blood Pressure Mean [Right Arm] 102 Blood Pressure Position [Right Arm] Sitting 02 Sat by Pulse Oximetry 98 Oxygen Delivery Method Room Air - Lab Data Lab Results 05/13/21 18:25: WBC 7.7, RBC 4.85, Hgb 13.8, Hct 41.0, MCV 84.6, MCH 28.5, MCHC 33.7, RDW 13.7, Plt Count 307, MPV 7.1 L, Neut % (Auto) 52.0, Lymph % (Auto) 39.0, [place] % (Auto) 5.8, Eos % (Auto) 2.5, Baso % (Auto) 0.7, Neut # (Auto) 4.0, Lymph # (Auto) 3.0, [place] # (Auto) 0.5, Eos # (Auto) 0.2, Baso # (Auto) 0.1 05/13/21 18:25: Sodium 138, Potassium 3.7, Chloride 101, Carbon Dioxide 31 H, Anion Gap 9.7, BUN 8, Creatinine 0.60, Estimated Creat Clear 270, Estimated GFR 119, Est GFR ( Amer) 144, Glucose 94, Calcium 9.0, Troponin I < 0.01, TSH 2.31, Thyroxine (T4) 13.0 H 05/13/21 18:25: Serum HCG, Qual Negative Result diagrams: 05/13/21 18:25 05/13/21 18:25 Orders (Tests/Meds): ED MEDICATIONS Discontinued Medications Generic Name Dose Route Start Last Admin Trade Name Freq PRN Reason Stop Dose Admin Iopamidol 70 ml 05/13/21 19:38 05/13/21 19:39 Iopamidol-370 (76%);100ml Bottle IV 05/13/21 19:39 70 ml ONCE ONE Administration Ondansetron HCl 4 mg 05/13/21 19:05 05/13/21 19:05 Ondansetron 4mg/2ml Vial IV 05/13/21 19:06 4 mg ONCE ONE Administration Sodium Chloride 40 ml 05/13/21 19:38 05/13/21 19:39 0.9 % Sodium Chloride 50 Ml Vial IV 05/13/21 19:39 40 ml ONCE ONE Administration Sodium Chloride 10 ml 05/13/21 19:38 05/13/21 19:39 Sodium Chloride 0.9% 10ml Syr (Rad Only) IV 05/13/21 19:39 10 ml ONCE ONE Administration ORDERS Category Date Time Status Troponin I Q3H Lab 05/13/21 21:15 Ordered Troponin I Q3H Lab 05/14/21 00:15 Ordered General Adult HPI - General Chief complaint: Shortness of Breath/Dyspnea Stated complaint: Post op 05/09 nausea, headpain, dizzy, heart racin Time Seen by Provider: 05/13/21 20:04 Mode of Arrival: Wheelchair Limitations: No Limitations Description of Symptoms (Recalled from ER Triage Doc. by RN): TO ED PER PVT CAR WITH C/O DIZZINESS HEAD SPINNING , SOB, CHEST PRESSURE, GENERALIZED WEAKNESS, NAUSEA STARTING TODAY. PT STATES HAD SURGERY TUES RT LEG FOR TENDON REPAIR. - Related Data Home Medications Medication Instructions Recorded Confirmed levothyroxine 100 mcg capsule 100 mcg PO DAILY cap 11/13/17 04/01/20 Sertraline HCl [Zoloft 50mg tablet] 50 mg PO DAILY 02/12/19 04/01/20 Acyclovir [Acyclovir 800mg tab] 800 mg PO 5XDAY 03/25/20 04/01/20 Amoxicillin/Potassium Clav 1 tab PO Q12H 03/25/20 04/01/20 [Augmentin 875-125 Tablet] Mupirocin [Bactroban 2% Ointment 1 applicatio TP TID 03/25/20 04/01/20 22gm tube] Gabapentin [Gabapentin 300mg Cap] 300 mg PO TID 04/01/20 04/01/20 Previous Rx's Medication Instructions Recorded Fluticasone Propionate [Flonase 1 - 2 spr NS DAILY #1 bottle 07/16/20 50mcg nasal spray 16gm] Amoxicillin [Amoxicillin 875MG 875 mg PO Q12H #20 tab 11/01/20 Tab] Fluticasone Propionate [Flonase 1 spr NS DAILY #1 bottle 11/01/20 50mcg nasal spray 16gm] guaiFENesin [Mucinex 600mg tablet] 600 mg PO Q12HP PRN #20 tab.er.12h 11/01/20 Allergies Allergy/AdvReac Type Severity Reaction Status Date / Time codeine [CODEINE] Allergy Intermediate I-ITCHING Verified 04/01/20 09:26 Sulfa (Sulfonamide
--- NOTE | 2021-05-13 20:57 | HMH.EDCP ---
ED Disposition Clinical Impression: Chest pain Qualifiers: Chest pain type: pleurodynia Qualified Code(s): R07.81 - Pleurodynia Headache Qualifiers: Headache type: unspecified Headache chronicity pattern: acute headache Intractability: not intractable Qualified Code(s): R51.9 - Headache, unspecified Disposition: Home, Self-Care Condition on Discharge: Good Instructions: DI for Headache Additional Instructions: fluids and see pcp for follo wup Prescriptions: Ketorolac Tromethamine [Toradol 10mg tablet] 10 mg PO Q6HP PRN #8 tab MDD 40mg/day PRN Reason: Moderate To Severe Pain Transmission Status: Pending to [facility] Referrals: León Paulino [Primary Care Provider] - - Critical Care Critical Care Time: No Attestation: On 05/13/21, the high probability of a clinically significant, sudden or life threatening deterioration of the following system(s) required my full and direct attention, intervention and personal management. The time I documented below is in addition to time spent performing reported procedures but includes the following listed in this critical care notation. Medical Decision Making - Medical Records Medical records reviewed: Yes: I reviewed the patient's medical records. - Job Inquiry Pt receiving controlled substance: No Vital Signs: 05/13/21 17:33 Temperature 98.2 F Temperature Source Oral Pulse Rate [Radial] 79 Respiratory Rate 16 Blood Pressure [Right Arm] 144/81 H Blood Pressure Mean [Right Arm] 102 Blood Pressure Position [Right Arm] Sitting 02 Sat by Pulse Oximetry 98 Oxygen Delivery Method Room Air - Lab Data Lab results reviewed: Yes: I reviewed the patient's lab results. Lab Results 05/13/21 18:25: WBC 7.7, RBC 4.85, Hgb 13.8, Hct 41.0, MCV 84.6, MCH 28.5, MCHC 33.7, RDW 13.7, Plt Count 307, MPV 7.1 L, Neut % (Auto) 52.0, Lymph % (Auto) 39.0, [place] % (Auto) 5.8, Eos % (Auto) 2.5, Baso % (Auto) 0.7, Neut # (Auto) 4.0, Lymph # (Auto) 3.0, [place] # (Auto) 0.5, Eos # (Auto) 0.2, Baso # (Auto) 0.1 05/13/21 18:25: Sodium 138, Potassium 3.7, Chloride 101, Carbon Dioxide 31 H, Anion Gap 9.7, BUN 8, Creatinine 0.60, Estimated Creat Clear 270, Estimated GFR 119, Est GFR ( Amer) 144, Glucose 94, Calcium 9.0, Troponin I < 0.01, TSH 2.31, Thyroxine (T4) 13.0 H 05/13/21 18:25: Serum HCG, Qual Negative Result diagrams: 05/13/21 18:25 05/13/21 18:25 Orders (Tests/Meds): ED MEDICATIONS Discontinued Medications Generic Name Dose Route Start Last Admin Trade Name Freq PRN Reason Stop Dose Admin Iopamidol 70 ml 05/13/21 19:38 05/13/21 19:39 Iopamidol-370 (76%);100ml Bottle IV 05/13/21 19:39 70 ml ONCE ONE Administration Ketorolac Tromethamine 30 mg 05/13/21 20:35 05/13/21 20:40 Ketorolac 30mg/Ml Vial IV 05/13/21 20:36 30 mg ONCE ONE Administration Ondansetron HCl 4 mg 05/13/21 19:05 05/13/21 19:05 Ondansetron 4mg/2ml Vial IV 05/13/21 19:06 4 mg ONCE ONE Administration Promethazine HCl 25 mg 05/13/21 20:35 05/13/21 20:40 Promethazine Hcl 25mg/Ml 1ml Vial IV 05/13/21 20:36 25 mg ONCE ONE Administration Sodium Chloride 40 ml 05/13/21 19:38 05/13/21 19:39 0.9 % Sodium Chloride 50 Ml Vial IV 05/13/21 19:39 40 ml ONCE ONE Administration Sodium Chloride 10 ml 05/13/21 19:38 05/13/21 19:39 Sodium Chloride 0.9% 10ml Syr (Rad Only) IV 05/13/21 19:39 10 ml ONCE ONE Administration Sodium Chloride 25 ml 05/13/21 20:35 Sodium Chloride 0.9% 25ml Bag IV 05/13/21 20:36 ONCE ONE ORDERS Category Date Time Status Troponin I Q3H Lab 05/13/21 21:15 Ordered Troponin I Q3H Lab 05/14/21 00:15 Ordered - Radiology Data #1 Image(s): Chest Image Reviewed: Yes I reviewed the patient's radiology image Preliminary Findings: Normal/NAD - CT Data CT Scan: Chest Time Received: 21:[address] Reviewed: Yes: I have viewed the radiologist's interpretation Preliminary Findings: No
[2021-05-13 21:56] VITALS: BP 124/70; PULSE 78; RESP 18; TEMP 36.8; O2SAT 98
== END 2021-05-13 21:58 | disposition home or self-care (01) ==
PROVIDERS: Emergency Medicine; Emergency Provider Emergency Medicine; PCP Family Medicine
DX: R07.81 Pleurodynia (principal); R51.9 Headache, unspecified; E03.9 Hypothyroidism, unspecified; Z79.899 Other long term (current) drug therapy
CPT/HCPCS: 71045; 71275; 80048; 84436; 84443; 84484; 84703; 85025; 93005; 96365; 96375; 99283; J2405; Q9967

== ENCOUNTER → 2021-08-31 11:07 | Outpatient (CLI) | payer BC, SELFPAY | PROVIDERS: PCP Family Medicine; Visit Provider Nurse Practitioner | DX: Z20.822 Contact with and (suspected) exposure to COVID-19 (principal) | CPT/HCPCS: C9803; U0003; U0005 ==

== ENCOUNTER 2021-11-04 19:32 | Emergency (ER) | payer BC, SELFPAY ==
[2021-11-04 19:35] VITALS: BP 134/78; PULSE 121; RESP 22; TEMP 37.3; O2SAT 100; BMI 40.3
[2021-11-04 20:04] LABS: Adenovirus,PCR Not Detected (NotDetected); Bordetella Pertussis Not Detected (NotDetected); Chlamydophila Pneumoniae, PCR Not Detected (NotDetected); Coronavirus 19, PCR Not Detected (NotDetected); Coronavirus 229E Not Detected (NotDetected); Coronavirus NL63 Not Detected (NotDetected); Coronavirus OC43 Not Detected (NotDetected); Coronovirus HKU1,PCR Not Detected (NotDetected); Human Metapneumovirus Not Detected (NotDetected); Influenza A, PCR Not Detected (NotDetected); Influenza AH1, 2009 Not Detected (NotDetected); Influenza AH1, PCR Not Detected (NotDetected); Influenza AH3,PCR Not Detected (NotDetected); Influenza B, PCR Not Detected (NotDetected); Mycoplasma Pneumoniae, PCR Not Detected (NotDetected); Parainfluenza 1, PCR Not Detected (NotDetected); Parainfluenza 2, PCR Not Detected (NotDetected); Parainfluenza 3, PCR Not Detected (NotDetected); Parainfluenza 4, PCR Not Detected (NotDetected); Respiratory Syncytial Virus Not Detected (NotDetected)
[2021-11-04 20:06] VITALS: BP 134/78; PULSE 121; RESP 22; TEMP 37.3; O2SAT 100
--- NOTE | 2021-11-04 20:08 | HMH.EDUTC ---
[facility] [place] Disposition Clinical Impression: Maxillary sinusitis, acute Qualifiers: Recurrence: non-recurrent Qualified Code(s): J01.00 - Acute maxillary sinusitis, unspecified Disposition: Home, Self-Care Condition on Discharge: Good Instructions: DI for Sinusitis Additional Instructions: Start antibiotic patient to take as ordered for a full length of time even if you feel better. Sinus infections do not get better overnight. It may take 2-3 days to notice much improvement so be sure to use conservative measures as discussed for symptoms. Flonase 1 spray each nostril daily to help with nasal congestion, sinus and ear pressure/information Increase fluids Humidifier/vaporizer as needed Tylenol and ibuprofen as needed for fever or pain. If symptoms do not improve or get worse return or be seen in the ER Follow-up with primary care this week Prescriptions: Fluticasone Propionate [Flonase 50mcg nasal spray 16gm] 1 spr NS DAILY 14 Days #9.9 ml Transmission Status: Pending to [facility] Azithromycin [Zithromax 250mg tab] 250 mg PO DIRECTED #4 tab Transmission Status: Pending to [facility] Referrals: León Paulino [Primary Care Provider] - Time of Disposition: 20:19 Medical Decision Making - Job Inquiry Pt receiving controlled substance: No Vital Signs: 11/04/21 19:35 11/04/21 20:06 Temperature 99.1 F 99.1 F Temperature Source Oral Pulse Rate 121 H Pulse Rate [Right Brachial] 121 H Respiratory Rate 22 22 Blood Pressure 134/78 Blood Pressure [Right Arm] 134/78 Blood Pressure Mean [Right Arm] 96 Blood Pressure Source [Right Arm] Automatic Cuff Blood Pressure Position [Right Arm] Sitting 02 Sat by Pulse Oximetry 100 Oxygen Delivery Method Room Air Orders (Tests/Meds): ORDERS Category Date Time Status Full Resp Panel w/COVID ([facility]) Routine Lab 11/04/21 19:45 Received Rapid Strep Scrn Group A [Strep Scrn Group A (Rapid)] Lab 11/04/21 19:45 Received Stat [facility] [place] HPI - General Chief complaint: Urgent Treatment Center Stated complaint: sore throat,cough,GHOSH,diarrhea [place] Time Seen by Provider: 11/04/21 20:08 Mode of Arrival: Ambulatory Source of Information: Patient Limitations: No Limitations Description of Symptoms (Recalled from Triage Doc. by RN): PATIENT C/O CONGESTION, SINUS PRESSURE, GREEN DRAINAGE, HEADACHE, COUGH, SORE THROAT, DIARRHEA, AND EAR ACHE SINCE SATURDAY HEENT Symptoms (Recalled from RN notes): Yes Resp Symptoms (Recalled from RN notes): Yes Skin Symptoms (Recalled from RN notes): No MS Symptoms (Recalled from RN notes): No Functional Status (Recalled from RN notes): WNL - History of Present Illness Provider Complaint: 31 yr old female presents for congestion, sinus pressure, green drainage,ghosh,cough,sore throat, diarrhea ad ear ach since . - Related Data Home Medications Medication Instructions Recorded Confirmed levothyroxine 100 mcg capsule 100 mcg PO DAILY cap 11/13/17 04/01/20 Sertraline HCl [Zoloft 50mg tablet] 50 mg PO DAILY 02/12/19 04/01/20 Acyclovir [Acyclovir 800mg tab] 800 mg PO 5XDAY 03/25/20 04/01/20 Amoxicillin/Potassium Clav 1 tab PO Q12H 03/25/20 04/01/20 [Augmentin 875-125 Tablet] Mupirocin [Bactroban 2% Ointment 1 applicatio TP TID 03/25/20 04/01/20 22gm tube] Gabapentin [Gabapentin 300mg Cap] 300 mg PO TID 04/01/20 04/01/20 Previous Rx's Medication Instructions Recorded Fluticasone Propionate [Flonase 1 - 2 spr NS DAILY #1 bottle 07/16/20 50mcg nasal spray 16gm] Amoxicillin [Amoxicillin 875MG 875 mg PO Q12H #20 tab 11/01/20 Tab] Fluticasone Propionate [Flonase 1 spr NS DAILY #1 bottle 11/01/20 50mcg nasal spray 16gm] guaiFENesin [Mucinex 600mg tablet] 600 mg PO Q12HP PRN #20 tab.er.12h 11/01/20 Ketorolac Tromethamine [Toradol 10 mg PO Q6HP PRN #8 tab MDD 05/13/21 10mg tablet] 40mg/day Azithromycin [Zithromax 250mg 250 mg PO DIRECTED #4 tab 11/04/21 tab] Fluticason
[2021-11-04 20:21] LABS: Strep Scrn Group A (Rapid) Negative (Negative)
[2021-11-04 21:44] LABS: Rhinovirus/Enterovirus Detected (NotDetected)
== END 2021-11-04 20:24 | disposition home or self-care (01) ==
PROVIDERS: Emergency Provider Nurse Practitioner Family; PCP Family Medicine
DX: J01.90 Acute sinusitis, unspecified (principal); E03.9 Hypothyroidism, unspecified
CPT/HCPCS: 87430; 87581; 87632; 87798; 99203; C9803; G0463; U0003; U0005